=== PATIENT | female | born 1985 | race Two or more races ===

== ENCOUNTER 2024-02-17 08:27 | Emergency (ER) | payer MEDICAID, SELFPAY ==
[2024-02-17 08:33] VITALS: BP 137/82; PULSE 94; RESP 19; TEMP 37.4; O2SAT 98; BMI 20.9
--- NOTE | 2024-02-17 08:42 | XR_ITS ---
Examination: PA lateral chest 2 views Technique: Upright PA lateral chest 2 views Exam date and time: February 17, 2024 0857 hrs. Indications: Fever coughing beginning 3 days ago. Findings: Normal heart size Lungs are clear. Intact osseous structures Impression: No active disease
--- NOTE | 2024-02-17 08:43 | EDNOTE_ITS ---
Upper Respiratory Inf. RME/HPI General Chief Complaint: Flu Like Symptoms Stated Complaint: headache, cough, body aches x 3d Time Seen by Provider: 02/17/24 08:46 Source: patient, RN notes reviewed and old records reviewed Arrival date/time: 02/17/24 08:27 Mode of arrival: ambulatory Limitations: no limitations RME / HPI RME / HPI Narrative: 39yof presents to ED for 3-day history of intermittent fever, congestion and cough. Patient c/o headache, generalized body aches and chest wall pain with cough. No shortness of breath, nausea/vomiting or dizziness reported. Advil taken at 0530 this morning with mild relief. No sick contacts at home. Related Data Home Medications ?Medication ?Instructions ?Recorded ?Confirmed prenat.vits,farhan,[id number] 1 tab PO QDAY 05/20/17 06/14/17 ( Vitamin tablet) famotidine 20 mg tablet (Pepcid) 20 mg PO QDAY 06/14/17 06/14/17 fluticasone propionate 50 2 spray intranasal QDAY 06/14/17 06/14/17 mcg/actuation nasal spray,suspension (Flonase Allergy Relief) loratadine 10 mg tablet (Claritin) 10 mg PO QDAY 06/14/17 06/14/17 Previous Rx's ?Medication ?Instructions ?Recorded ibuprofen 800 mg tablet 800 mg PO TID PRN pain #30 tabs 06/18/17 acetaminophen 500 mg tablet 1,000 mg (2 x 500 mg) PO Q6H PRN 02/17/24 (Tylenol Extra Strength) fever or pain #30 tabs dextromethorphan-guaifenesin ER 60 1 tab PO Q12H PRN congestion/cough 02/17/24 mg-1,200 mg tab,extend #20 tabs release,12hr (Mucinex DM) ibuprofen 600 mg tablet 600 mg PO Q6H PRN pain #30 tabs 02/17/24 pseudoephedrine HCl 120 mg 120 mg PO Q12H PRN nasal 02/17/24 tablet,extended release (Sudafed congestion #20 tabs 12 Hour) Allergies Allergy/AdvReac Type Severity Reaction Status Date / Time NKA* Allergy Uncoded 05/20/17 07:51 Review of Systems Review of Systems Systems Reviewed: All systems reviewed, normal except as documented Constitutional Constitutional: Reports body ache(s), Reports chills, Reports fever(s) and Reports headache(s) ENT Ears, Nose, Mouth, and Throat: Reports headache(s), Reports nasal congestion, Denies sore throat and Denies vertigo Cardiovascular Cardiovascular: Denies dyspnea Respiratory Respiratory: Reports chest congestion, Reports cough, Denies dyspnea and Reports pain with cough Gastrointestinal Gastrointestinal: Denies nausea and Denies vomiting Musculoskeletal Musculoskeletal: Reports myalgias Neurologic Neurologic: Reports headache(s) and Denies vertigo Past Medical History Surgical History SURGICAL: Positive Hx Cholecystectomy Social History SMOKING STATUS: Never smoker SUBSTANCE USE: does not use ALCOHOL: Never Past Medical History Comments PMH COMMENT: Denies past medical history ED Exam General Limitations: Present no limitations General appearance: Present alert and in no apparent distress Head Head exam: Present atraumatic and normocephalic Eye Eye exam: Present normal appearance, PERRL and EOMI ENT ENT exam: Present normal oropharynx, mucous membranes moist, TM's normal bilaterally and other (Mild UAC) Neck Neck exam: Present normal inspection and full ROM Chest Chest inspection: Present normal inspection and symmetric chest wall rise Respiratory Respiratory exam: Present normal lung sounds bilaterally and other (Wheezing, rales or rhonchi); Absent respiratory distress Cardiovascular Cardiovascular exam: Present regular rate and normal rhythm Extremities Exam Extremities exam: Present normal inspection and full ROM Neurological Exam Neurological exam: Present alert and oriented X3 Psychiatric Psychiatric exam: Present normal affect and normal mood Skin Skin exam: Present warm, dry, intact and normal color Course Quality Measures none Orders Category Date Time Status Bedside COVID-19 Antigen Test NOW Care 02/17/24 08:42 Completed Bedside Influenza A&B Antigen Test NOW Care 02/17/24 08:42 Completed CXR2 [XR chest 2V] Stat Exams 02/17/24 08:42 Completed Acetaminophen Tab [Tylenol ES Tab] Med 02/17/24 08:42 Discontinued 1,000 mg PO X1 ONE Ketorolac Inj [Toradol Inj] Med 02/17/24 08:42 Discontinued 30 mg IM X1 ONE Vital Signs Vital signs: Vital Signs Temperature 99.4 F 02/17/24 08:33 Pulse Rate 94 02/17/24 08:33 Respiratory Rate 19 02/17/24 08:33 Blood Pressure 137/82 H 02/17/24 08:33 Pulse Oximetry (%) 98 02/17/24 08:33 Oxygen Delivery Method Room Air 02/17/24 08:33 Upper Respiratory Infection MDM Narrative MDM Narrative:: 39yof presents to ED for 3-day history of intermittent fever, congestion and cough. Patient c/o headache, generalized body aches and chest wall pain with cough. No shortness of breath, nausea/vomiting or dizziness reported. Advil taken at 0530 this morning with mild relief. No sick contacts at home. Flu A is positive. Patient is non-toxic appearing, afebrile, vitals are stable. No evidence of respiratory distress or hypoxia. Encouraged rest, fluids, symptomatic treatment, fever management prn. Stable for discharge, RTED precautions given Patient data External records reviewed:: [facility] previous records (Admit/02/20 for induction of labor) Clinical information provided by:: patient Social determinants that could affect healthcare access:: other (specify) (Poor access to healthcare, acculturation difficulty, unemployment) Patient has the following chronic illnesses:: None How is presenting disease/condition affected by chronic disease/condition?: no chronic disease Evaluation data The following diagnostics were reviewed and interpreted by me:: lab results and radiology exam(s) Lab and/or radiology exams considered but not ordered:: EKG: chest wall pain with cough only, do not suspect cardiac etiology Interpretation Summary: CXR: No pneumonia per my read Flu A positive. COVID-negative. Medications / Prescriptions Medications or Prescriptions considered but not ordered:: No antibiotics or antivirals recommended at this time Medication administrations:: Medication Administration History Discontinued Medications Acetaminophen (Acetaminophen 500 Mg Tablet) 1,000 mg PO X1 ONE Stop: 02/17/24 08:43 Last Admin: 02/17/24 08:52 Dose: 1,000 mg Documented By: BARRY Ketorolac Tromethamine (Ketorolac Inj 60 Mg/2 Ml Vial) 30 mg IM X1 ONE Stop: 02/17/24 08:43 Last Admin: 02/17/24 08:53 Dose: 30 mg Documented By: BARRY Above medications administered in ED Consultations Consultation(s) initiated? (list below): No Diagnosis Upper Respiratory Differential Diagnosis: other (COVID, flu, URI, viral illness, bronchitis, pneumonia) Most likely diagnosis given after review of the tests above:: Influenza A Admission Indicated Admission indicated?: not indicated Admission Request Was there a request for admission?: No Disposition Plan Disposition Plan: Discharge Discharge Attestation Discharge Attestation: The patient and all family members were given an opportunity to ask questions and understood the discharge instructions. Discharge instructions specifically effects, indications for sooner follow up or return to the emergency department, and the expected course of current diagnosis. Patient condition: Stable Discharge Plan Plan Patient Disposition: HOME (Self Care) Patient condition on transfer: Stable Prescriptions/Referrals Prescriptions/Med Rec: New ibuprofen 600 mg tablet 600 mg PO Q6H PRN (Reason: pain) Qty: 30 0RF acetaminophen [Tylenol Extra Strength] 500 mg tablet 1,000 mg PO Q6H PRN (Reason: fever or pain) Qty: 30 0RF dextromethorphan-guaifenesin [Mucinex DM] 60-1,200 mg tablet extended release 12 hr 1 tab PO Q12H PRN (Reason: congestion/cough) Qty: 20 0RF pseudoephedrine HCl [Sudafed 12 Hour] 120 mg tablet extended release 120 mg PO Q12H PRN (Reason: nasal congestion) Qty: 20 0RF No Action famotidine [Pepcid] 20 mg Tablet 20 mg PO QDAY fluticasone propionate [Flonase Allergy Relief] 50 mcg/actuation [place],Suspension 2 spray INTRANASAL QDAY loratadine [Claritin] 10 mg Tablet 10 mg PO QDAY ibuprofen 800 mg tablet 800 mg PO TID PRN (Reason: pain) Qty: 30 0RF prenat.vits,farhan,[id number] [ Vitamin] Tablet 1 tab PO QDAY Referrals: Reyna Smallwood FNP-C [Primary Care Provider] - In 1 week Problem List Clinical Impression: Influenza A, Viral illness Patient/Caregiver Discharge Instructions Education Materials: ED Influenza (Adult) Additional Instructions: Alternate Motrin and Tylenol every 4-6 hours as needed for fever or pain. Make sure to get plenty of rest, drink plenty of fluids. Typical virus lasts approximately 7 to 10 days. Print Language: Citizen Of [place] Stand Alone Forms: [employer] Award Info., Patient Portal Info Letter PA/CHARGING MANIPULATOR Supervising Physician PA/CHARGING MANIPULATOR Supervising Physician: Joanne
[2024-02-17] MEDS: ACETAMINOPHEN 500 MG TABLET 1000 MG PO (08:52)
[2024-02-17] MEDS: KETOROLAC INJ 60 MG/2 ML VIAL 30 MG IM (08:53)
== END 2024-02-17 10:04 | disposition home or self-care (01) ==
PROVIDERS: Emergency Provider Emergency Medicine; PCP Nurse Practitioner Family
DX: J10.1 Influenza due to other identified influenza virus with other respiratory manifestations (principal)
CPT/HCPCS: 71046; 87400; 87811; 96372; 99283; J1885; A9270